=== PATIENT | male | born 1940 | race Caucasian/White ===

== ENCOUNTER 2024-09-05 19:51 | Inpatient (IN) | payer MEDICARE, OTHER, SELFPAY ==
[2024-09-05] VITALS (7 sets, daily range): BP systolic 123–138; BP diastolic 49–87; BMI 21.8; BMI 23.5
[2024-09-05 13:09] LABS: % Basophils 0.2 % (0-2); % Eosinophils 0.2 % (0-6); % Immature Granulocytes 0.5 % (0-0.5); % Lymphocytes 15.5 % (20.5-51.1); % Monocytes 8.5 % (1.7-9.3); % Neutrophils 75.1 % (42.2-75.2); Absolute Immature Granulocytes 0.1 10^3/uL (0-0.05); Absolute Monocytes 1.1 10^3/uL (0.1-0.6); Absolute Neutrophils 9.7 10^3/uL (1.4-6.5); Hematocrit 34.8 % (39.0-52.0); Hemoglobin 11.1 g/dL (13.0-18.0); Mean Corp Hgb Conc. 31.9 g/dL (33.0-37.0); Mean Corpuscular Hgb 25.9 pg (27.0-31.0); Mean Corpuscular Volume 81.3 fL (80.0-94.0); Mean Platelet Volume 10.4 fL (7.4-10.4); Nucleated Red Blood Cells % 0 % (-); Platelet Count 339 10^3/uL (130-400); Red Blood Cell Count 4.28 10^6/uL (4.70-6.10); Red Cell Dist. Width 16.6 % (11.5-14.5); White Blood Cell Count 12.9 10^3/uL (4.8-10.8)
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
[2024-09-05 13:19] LABS: ALT (SGPT) 16 U/L (0-50); AST (SGOT) 34 U/L (17-59); Albumin 3.9 g/dl (3.5-5.0); Alkaline Phosphatase 168 U/L (38-126); Blood Urea Nitrogen 33 mg/dl (9-20); Calcium 9.4 mg/dl (8.4-10.2); Carbon Dioxide 21 mmol/L (22-30); Chloride 104 mmol/L (98-107); Estimated Creatinine Clearance 47 ml/min; Glucose 124 mg/dl (70-99); Lactic Acid 2.8 mmol/L (0.7-2.0); Lipase 40 U/L (23-300); Sodium 142 mmol/L (135-145); Total Bilirubin 1.2 mg/dl (0.2-1.3); Total Protein 6.7 g/dl (6.3-8.2); eGFR > 60.00
[2024-09-05] MEDS: NSS 1000 IV ×2 (14:09→23:56)
[2024-09-05] MEDS: ZOFRAN 4 MG IV (14:09)
[2024-09-05] MEDS: OMNIPAQUE 50 ML PO (14:10)
--- NOTE | 2024-09-05 18:12 | W.PN.UPDATE ---
Update Note
Progress Note Update
I saw and examined the patient.
The DIRECTOR [employer] MARKETING [place] note was reviewed and I agree with the note.
Comment: 83 y/o M hx of HTN, HLD, COPD, ex-smoker, GERD, BPH, osteoarthritis presents to ER with vomiting, abd pain and inability to take in oral intake for the past x 1 week. Also reports difficulty with constipation over several months. Patient
was brought in by EMS after son called and heard of symptoms (Son was visiting).
in ER, CT imaging showed: 5 cm in length distal sigmoid mass high-level suspicion for adenocarcinoma and associated with multiple surrounding subcentimeter lymph nodes, Distention of the colon proximal to the sigmoid mass suggesting an element of
partial obstruction and hepatic mets.
Patient was admitted with colorectal consultation.
Physical Exam
General: Conversant; No Fever or Chills
HEENT: NormoCephalic, Anicteric, Moist mucous membranes, PERRLA and No Ptosis
Respiratory: Clear; No Wheezes, Rales or Rhonchi
Cardiac: S1/S2 and Regular Rhythm; No Murmur, Rub, Gallop or Peripheral Edema
Breast: Deferred by me
GI: Non Tender, Normal Bowel Sounds, Distended and No Hepatosplenomegaly
Rectal: Deferred by Provider
Genito-urinary: Deferred by me
Musculoskeletal: No Clubbing, No Cyanosis and No Edema
Skin: Warm and Dry; No Rash
Neuro: AO x 3 (Patient reports to me he has some memory impairment he tends to jump from topic to topic during our discussion), No Motor Deficits and No Sensory Deficits; No Slurred Speech, Facial Droop, Tremors or Sedated
Psych: Calm (To anxious versus agitated during our discussion)
Assessment:
Partial SBO
- CT: 5 cm in length distal sigmoid mass high-level suspicion for adenocarcinoma and associated with multiple surrounding subcentimeter lymph nodes, Distention of the colon proximal to the sigmoid mass suggesting an element of partial obstruction
and hepatic mets.
- above findings are new
- place NGT in ER, high risk of aspiration
- NPO and IVF
- pain control and anti-emetics
- Colorectal surgery consulted
- Oncology consulted
Lactic acidosis in setting of bowel obstruction
- continue IVF, repeat lactate level
Essential HTN
- not on meds, monitor for prn needs
COPD
ex-smoker
- prn nebs
GERD
- continue PPI as IV BID
BPH
- hold Avodart/Flomax
- bladder scans prn
Hx of neuropathy
osteoarthritis
Hx of Gout
- hold Gabapentin/Allopurinol
Anxiety
- prn Valium
HLD - not on meds
DVT ppx: SC heparin
Code: Full
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
--- NOTE | 2024-09-05 20:50 | TRANSFER ---
Pt admitted to unit with NG tube in left nare and taped at the 66 line. Pt ambulated with nursing staff to bed. Pt reported tenderness to palpation of abdomen. Pt denied nausea. NG tube connected to suction. AAXO2. Pt oriented to room with call rodriguez
in reach. Plan of care ongoing.
[2024-09-05 21:10] LABS: Lactic Acid 1.6 mmol/L (0.7-2.0)
[2024-09-05 21:13] LABS: Blood Urea Nitrogen 29 mg/dl (9-20); Carbon Dioxide 23 mmol/L (22-30); Chloride 103 mmol/L (98-107); Estimated Creatinine Clearance 56 ml/min; Glucose 103 mg/dl (70-99); Sodium 141 mmol/L (135-145); eGFR > 60.00
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
[2024-09-05] MEDS: HEPARIN 5000 UNITS SC (23:57)
[2024-09-06 07:00] VITALS: BP 143/83
[2024-09-06 07:38] LABS: % Basophils 0.3 % (0-2); % Eosinophils 0.5 % (0-6); % Immature Granulocytes 0.5 % (0-0.5); % Lymphocytes 15.5 % (20.5-51.1); % Monocytes 8.9 % (1.7-9.3); % Neutrophils 74.3 % (42.2-75.2); Absolute Eosinophils 0.1 10^3/uL (0-0.7); Absolute Immature Granulocytes 0.1 10^3/uL (0-0.05); Absolute Lymphocytes 1.5 10^3/uL (1.2-3.4); Absolute Monocytes 0.8 10^3/uL (0.1-0.6); Hematocrit 29.8 % (39.0-52.0); Hemoglobin 9.2 g/dL (13.0-18.0); Mean Corp Hgb Conc. 30.9 g/dL (33.0-37.0); Mean Corpuscular Hgb 24.6 pg (27.0-31.0); Mean Corpuscular Volume 79.7 fL (80.0-94.0); Mean Platelet Volume 11.5 fL (7.4-10.4); Nucleated Red Blood Cells % 0 % (-); Platelet Count 304 10^3/uL (130-400); Red Blood Cell Count 3.74 10^6/uL (4.70-6.10); Red Cell Dist. Width 16.8 % (11.5-14.5); White Blood Cell Count 9.5 10^3/uL (4.8-10.8)
[2024-09-06 07:43] LABS: INR 1.23; PT 15.3 Sec (11.4-14.6)
[2024-09-06 07:57] LABS: ALT (SGPT) 14 U/L (0-50); AST (SGOT) 27 U/L (17-59); Albumin 3.2 g/dl (3.5-5.0); Alkaline Phosphatase 149 U/L (38-126); Blood Urea Nitrogen 23 mg/dl (9-20); Calcium 8.7 mg/dl (8.4-10.2); Carbon Dioxide 24 mmol/L (22-30); Chloride 107 mmol/L (98-107); Estimated Creatinine Clearance 55 ml/min; Glucose 93 mg/dl (70-99); Potassium 3.6 mmol/L (3.5-5.1); Sodium 142 mmol/L (135-145); Total Bilirubin 0.8 mg/dl (0.2-1.3); Total Protein 5.9 g/dl (6.3-8.2); eGFR > 60.00
[2024-09-06] MEDS: HEPARIN 5000 UNITS SC ×2 (08:02→20:49)
[2024-09-06 08:25] LABS: Total Iron Binding Capacity 202 ug/dl (261-462)
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
[2024-09-06 08:57] LABS: Iron < 20 ug/dl (49-181)
[2024-09-06] MEDS: NSS 1000 IV ×2 (09:37→23:17)
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
[2024-09-06 10:00] VITALS: BP 132/74; PULSE 85; O2SAT 97
--- NOTE | 2024-09-06 11:02 | W.PN.CRS1 ---
Today's Communication / Plan
-
surgery vs hospice - patient still deciding
continue ngt
Assessment/Plan
-
complete large bowel obstruction from a proximal rectal mass associated with hepatic lesions concerning for hepatic metastases
-Continue NPO with NGT
-Patient still deciding if he wants surgery. He states he might want more time to think about it today. We did mention hospice care, which he is also considering.
-Given his uncertainty, we will have wound care berhane him for a stoma, should he decide to proceed.
-Will follow up with the patient early afternoon
Subjective Data
Subjective Data
Date of Service: September 06, 2024
Patient states he is considering whether or not he wants surgery. He is still undecided. He may want to wait until tomorrow.
Objective Data
-
Vital Signs
Temp Pulse Resp BP Pulse Ox
98.3 F 87 18 143/83 98
09/06/24 07:00 09/06/24 07:00 09/06/24 07:00 09/06/24 07:00 09/06/24 07:00
Intake & Output
09/05/24 09/06/24 09/07/24
06:59 06:59 06:59
Intake Total 615 / 615
Output Total 200 / 200
Balance 415 / 415
Intake:
IV fluids (Total) 615 / 615
Output:
Urine, Voided 200 / 200
Lab Results
09/06/24 07:06
09/06/24 07:06
Physical Exam
-
General: No Acute Distress and AOx3
Abdomen: Soft, Distended (slight) and Tender (diffusely tender)
Skin: Warm and Dry
[2024-09-06] MEDS: DILAUDID 1 MG IV ×2 (11:04→17:04)
[2024-09-06 11:22] LABS: CEA 409 ng/ml
[2024-09-06 11:26] LABS: Ferritin 56.9 ng/ml (17.9-464.0)
--- NOTE | 2024-09-06 12:06 | W.PN.UPDATE ---
Update Note
Progress Note Update
I spoke with the patient over the phone. This morning the patient was favoring waiting on surgery until least tomorrow after his friend arrived from [place]. I called him again to confirm this. The patient states that he does not want surgery
today. He may opt for surgery tomorrow but he wants to wait for his friend who is apparently getting on the plane from [place] now. The patient understands that his condition will worsen by waiting. I communicated the above with Dr. Cannon.
--- NOTE | 2024-09-06 12:41 | W.PN.HOSP.TC ---
Today's Communication/Plan
-
await possible surgery (tomorrow) vs hospice, patient remains in decision making process
continue NGT
Assessment / Plan
Assessment / Plan
Assessment:
near total SBO
- CT: 5 cm in length distal sigmoid mass high-level suspicion for adenocarcinoma and associated with multiple surrounding subcentimeter lymph nodes, Distention of the colon proximal to the sigmoid mass suggesting an element of partial obstruction
and hepatic mets.
- above findings are new
- this diagnosis is a threat to bodily function and life if progresses in short term
- s/p NGT placement in ER, continue LIWS
- NPO and IVF
- pain control and anti-emetics
- Colorectal surgery consulted; offered palliative diverting colostomy surgery. Patient still deciding; awaiting friends arrival to discuss
- Oncology consulted
- patient also considering hospice for underlying concern of metastatic cancer
Lactic acidosis in setting of bowel obstruction
- continue IVF, lactate normalized
Essential HTN
- not on meds, monitor for prn needs
COPD
ex-smoker
- prn nebs
GERD
- continue PPI as IV BID
BPH
- hold Avodart/Flomax
- bladder scans prn
Hx of neuropathy
osteoarthritis
Hx of Gout
- hold Gabapentin/Allopurinol
Anxiety
- prn Valium
HLD - not on meds
Anemia
- hematology following
- IV iron ordered as ferritin <100
DVT ppx: SC heparin
Code: Full
Anticipated Discharge: > 48 hours
Subjective/Interval History
-
Date of Service: September 06, [address]
patient remains deciding between Surgery vs hospice
Objective Data
-
Labs:
Laboratory Results
09/06/24
07:06
WBC 9.5
Hgb 9.2 L
Hct 29.8 L
Plt Count 304
PT 15.3 H
INR 1.23
APTT 37.0 H
Sodium 142
Potassium 3.6
Chloride 107
Carbon Dioxide 24
BUN 23 H
Creatinine 1.0
Glucose 93
Calcium 8.7
Total Bilirubin 0.8
AST 27
ALT 14
Alkaline Phosphatase 149 H
Vital Signs:
Vital Signs
Temp Pulse Resp BP Pulse Ox
98.3 F 87 18 143/83 98
09/06/24 07:00 09/06/24 07:00 09/06/24 07:00 09/06/24 07:00 09/06/24 07:00
I&O
09/05/24 09/06/24 09/07/24
06:59 06:59 06:59
Intake Total 615 / 615
Output Total 200 / 200
Balance 415 / 415
Physical Exam
-
General: No Apparent Distress
HEENT: Normocephalic, Atraumatic and Other (+NGT)
Respiratory: Negative Wheezes
Cardiac: Regular Rhythm and S1/S2
GI: Tender and Distended
Genito-urinary: No Costovertebral Tender
Neuro: AO x 3
Hematologic / Lymphatic: No Lymphadenopathy
Psych: Calm
Data Reviewed
-
Total Time Spent with Patient (in minutes): 41
Labs: Labs Reviewed by me
[2024-09-06] MEDS: FERRLECIT 110 MG IV (13:34)
--- NOTE | 2024-09-06 13:55 | CM ---
Patient lives in an apartment on 5th floor at [facility], patient is independent with adl's and ambulation, no dme, patient's friend drives him to buy groceries. Patient needs to make a decision on surgery and patient states his friend from
[place] is to arrive soon to help him make a decision.
PCP: Dr. Dyer
Pharmacy: [facility].
Plan; To follow with patient progress for discharge planning for patient.
[2024-09-06 15:00] VITALS: BP 128/74; BMI 23.5
[2024-09-07] VITALS (7 sets, daily range): BP systolic 109–155; BP diastolic 62–82
--- NOTE | 2024-09-07 01:35 | TRANSFER ---
Call 2 [facility] gave report to PROSPER Felix. Pt transferred in bed with belongings. Plan of care ongoing.
--- NOTE | 2024-09-07 04:33 | PTCARENOTE ---
Pt arrived via bed to 2S. Pt AAOX3 but confused. NGT in L nare to LIWS. IVF infusing per order. head to toe assessment complete. bed alarm in place. Pt oriented to room and call rodriguez.
--- NOTE | 2024-09-07 05:40 | PTCARENOTE ---
Addendum entered by Elvira Angel RN 09/07/24 07:04:
Pt stating continuously he is not going for surgery
Original Note:
Pt refused first set CHG wipes and linen change. 'pt states he is going on hospice' and 'waiting for his friend to come'.
[2024-09-07 06:23] LABS: % Basophils 0.3 % (0-2); % Eosinophils 0.2 % (0-6); % Immature Granulocytes 0.5 % (0-0.5); % Lymphocytes 18.3 % (20.5-51.1); % Neutrophils 71.7 % (42.2-75.2); Absolute Lymphocytes 1.6 10^3/uL (1.2-3.4); Absolute Monocytes 0.8 10^3/uL (0.1-0.6); Absolute Neutrophils 6.3 10^3/uL (1.4-6.5); Hematocrit 30.5 % (39.0-52.0); Hemoglobin 9.5 g/dL (13.0-18.0); Mean Corp Hgb Conc. 31.1 g/dL (33.0-37.0); Mean Corpuscular Volume 80.3 fL (80.0-94.0); Mean Platelet Volume 10.8 fL (7.4-10.4); Nucleated Red Blood Cells % 0 % (-); Platelet Count 298 10^3/uL (130-400); White Blood Cell Count 8.8 10^3/uL (4.8-10.8)
[2024-09-07 06:55] LABS: ALT (SGPT) 15 U/L (0-50); AST (SGOT) 28 U/L (17-59); Albumin 3.1 g/dl (3.5-5.0); Alkaline Phosphatase 139 U/L (38-126); Blood Urea Nitrogen 21 mg/dl (9-20); Calcium 8.8 mg/dl (8.4-10.2); Carbon Dioxide 20 mmol/L (22-30); Chloride 112 mmol/L (98-107); Estimated Creatinine Clearance 61 ml/min; Glucose 90 mg/dl (70-99); Potassium 3.8 mmol/L (3.5-5.1); Sodium 146 mmol/L (135-145); Total Bilirubin 0.7 mg/dl (0.2-1.3); Total Protein 5.6 g/dl (6.3-8.2); eGFR > 60.00
[2024-09-07] MEDS: NSS 1000 IV ×2 (07:50→22:16)
[2024-09-07] MEDS: HEPARIN 5000 UNITS SC ×2 (09:11→20:11)
--- NOTE | 2024-09-07 09:11 | CM ---
Received CM consult for hospice. Reviewed the chart notes. Referral sent via [facility] for Hospice. Per note, patient is waiting on his friend from [place] to decide on hospice or surgery. CM continues to be available to patient/family and
is monitoring medical plan for needs at discharge.
Plan: Discharge plans will depend on the patient's progress.
--- NOTE | 2024-09-07 09:16 | HOSPNOTE ---
Addendum entered by Divya Castillo RN 09/07/24 11:51:
Spoke with patient and gave information to him in regards to hospice and the philosophy his godson was present for the conversation. I left my name and contact information and the patient would like me to come back tomorrow and he will most likely
have an answer. Will follow up.
Original Note:
Referral received and will speak with patient and give information about hospice and the philosophy. I understand we are awaiting the arrival of patient's friend to make final decisions.
--- NOTE | 2024-09-07 09:42 | W.PN.CRS1 ---
Addendum entered and electronically signed by Stone Cannon MD 09/07/24 16:48:
Colorectal will sign off as patient elected hospice. Please call for any questions/concerns.
Original Note:
Today's Communication / Plan
-
continue ngt
holding on surgery
hospice c/s
Assessment/Plan
-
complete large bowel obstruction from a proximal rectal mass associated with hepatic lesions concerning for hepatic metastases
-Continue NPO with NGT
-Patient asking for a hospice consult. I notified hospitalist.
-Patient states he does not want surgery today but will consider things.
-Will follow.
Subjective Data
Subjective Data
Date of Service: September 07, 2024
Patient states he feels the same. He does not have any gas or bowel movements. He feels bloated. He has no nausea. He states that he does not want surgery today and would like to talk to hospice.
Objective Data
-
Vital Signs
Temp Pulse Resp BP Pulse Ox
97.5 F 83 17 152/72 96
09/07/24 07:40 09/07/24 07:40 09/07/24 07:40 09/07/24 07:40 09/07/24 07:40
Intake & Output
09/06/24 09/07/24 09/08/24
06:59 06:59 06:59
Intake Total 615 / 615 750 / 750
Output Total 200 / 200 375 / 375 25 25
Balance 415 / 415 375 / 375 -25 / -25
Intake:
IV fluids (Total) 615 / 615 650 / 650
IV piggybacks 100 / 100
Output:
Gastrointestinal tube output (
Total)
Marx
Urine, Voided 200 / 200 375 / 375
Lab Results
09/07/24 05:47
09/07/24 05:47
Physical Exam
-
General: No Acute Distress and AOx3
Abdomen: Distended and Non Tender
Skin: Warm and Dry
--- NOTE | 2024-09-07 12:18 | PTCARENOTE ---
Pt showered with tshirt on, pt refusing to remove soaked tshirt post shower.
[2024-09-07] MEDS: FERRLECIT 110 MG IV (13:40)
--- NOTE | 2024-09-07 13:57 | HOSPNOTE ---
Got a phone call from patient and friend, patient has decided to have the NG tube removed and be placed on comfort. The patient is fearful of being in pain I assured patient we will manage pain. Attending aware and will speak with patient.
--- NOTE | 2024-09-07 14:04 | W.PN.HOSP.TC ---
Today's Communication/Plan
-
2N transfer
remove NGT if ok with patient
possible comfort vs GIP level hospice in 24 hours
Assessment / Plan
Assessment / Plan
Assessment:
near total SBO
- CT: 5 cm in length distal sigmoid mass high-level suspicion for adenocarcinoma and associated with multiple surrounding subcentimeter lymph nodes, Distention of the colon proximal to the sigmoid mass suggesting an element of partial obstruction
and hepatic mets.
- above findings are new
- this diagnosis is a threat to bodily function and life if progresses in short term
- s/p NGT placement in ER, continue LIWS until decision for hospice/comfort finalized
- NPO and IVF
- pain control and anti-emetics
- Colorectal surgery consulted; offered palliative diverting colostomy surgery. Patient has declined and wants hospice
- Oncology consulted
Lactic acidosis in setting of bowel obstruction
- continue IVF, lactate normalized
Essential HTN
- not on meds, monitor for prn needs
COPD
ex-smoker
- prn nebs
GERD
- continue PPI as IV BID
BPH
- hold Avodart/Flomax
- bladder scans prn
Hx of neuropathy
osteoarthritis
Hx of Gout
- hold Gabapentin/Allopurinol
Anxiety
- prn Valium
HLD - not on meds
Anemia
- hematology following
- IV iron ordered as ferritin <100
DVT ppx: SC heparin
Code: DNR as patient pursuing hospice, confirmed with patient.
GOC discussion: patient wants to pursue hospice. Understands short and rat exterminator prognosis without acute or rat exterminator interventions is very poor. Agrees to have NG removed if ok with hospice service, and will give symptomatic control, possible
comfort vs GIP level hospice in 24 hours. CM/Hospice aware. >30 mins discussion
Anticipated Discharge: > 48 hours
Subjective/Interval History
-
Date of Service: September 07, 2024
refusing surgery and wants to be comfortable, pursue hospice
Objective Data
-
Labs:
Laboratory Results
09/07/24
05:47
WBC 8.8
Hgb 9.5 L
Hct 30.5 L
Plt Count 298
Sodium 146 H
Potassium 3.8
Chloride 112 H
Carbon Dioxide 20 L
BUN 21 H
Creatinine 0.9
Glucose 90
Calcium 8.8
Total Bilirubin 0.7
AST 28
ALT 15
Alkaline Phosphatase 139 H
Vital Signs:
Vital Signs
Temp Pulse Resp BP Pulse Ox
97.5 F 83 17 152/72 96
09/07/24 07:40 09/07/24 07:40 09/07/24 07:40 09/07/24 07:40 09/07/24 07:40
I&O
09/06/24 09/07/24 09/08/24
06:59 06:59 06:59
Intake Total 615 / 615 750 / 750
Output Total 200 / 200 375 / 375 25 / 25
Balance 415 / 415 375 / 375 -25 / -25
Physical Exam
-
General: Appears in Distress and Pain
HEENT: Normocephalic; Negative Atraumatic
Respiratory: Clear to Auscultation; Negative Wheezes
Cardiac: Regular Rhythm and S1/S2
GI: Tender and Distended
Genito-urinary: No Costovertebral Tender
Neuro: AO x 3
Psych: Calm
Data Reviewed
-
Total Time Spent with Patient (in minutes): 51
Labs: Labs Reviewed by me
[2024-09-07] MEDS: DILAUDID 1 MG IV (17:34)
--- NOTE | 2024-09-07 17:34 | PTCARENOTE ---
Pt to be transferred to , report called to Violet CHENG.
--- NOTE | 2024-09-07 18:30 | PTCARENOTE ---
Patient transferred from to . Pt c/o of abdomen pain. Medicated with pain med as ordered. No s/s of distress noted. Vs documented. call rodriguez within reach. God son at bedside. Plan of care ongoing.
[2024-09-07] MEDS: DILAUDID 0.5 MG IV (18:31)
[2024-09-07] MEDS: NSS IV (18:31)
[2024-09-07] MEDS: MORPHINE SULFATE 2 MG IV (20:18)
[2024-09-08] MEDS: MORPHINE SULFATE 2 MG IV ×4 (01:19→08:50)
[2024-09-08 07:29] VITALS: BP 135/74
[2024-09-08 07:37] LABS: % Basophils 0.3 % (0-2); % Eosinophils 0.5 % (0-6); % Immature Granulocytes 0.5 % (0-0.5); % Lymphocytes 12.9 % (20.5-51.1); % Monocytes 7.1 % (1.7-9.3); % Neutrophils 78.7 % (42.2-75.2); Absolute Eosinophils 0.1 10^3/uL (0-0.7); Absolute Immature Granulocytes 0.1 10^3/uL (0-0.05); Absolute Lymphocytes 1.4 10^3/uL (1.2-3.4); Absolute Monocytes 0.8 10^3/uL (0.1-0.6); Absolute Neutrophils 8.4 10^3/uL (1.4-6.5); Hemoglobin 10.2 g/dL (13.0-18.0); Mean Corp Hgb Conc. 31.9 g/dL (33.0-37.0); Mean Corpuscular Hgb 25.9 pg (27.0-31.0); Mean Corpuscular Volume 81.2 fL (80.0-94.0); Mean Platelet Volume 11.2 fL (7.4-10.4); Nucleated Red Blood Cells % 0 % (-); Platelet Count 285 10^3/uL (130-400); Red Blood Cell Count 3.94 10^6/uL (4.70-6.10); White Blood Cell Count 10.7 10^3/uL (4.8-10.8)
[2024-09-08 08:11] LABS: ALT (SGPT) 15 U/L (0-50); AST (SGOT) 30 U/L (17-59); Albumin 3.2 g/dl (3.5-5.0); Alkaline Phosphatase 151 U/L (38-126); Blood Urea Nitrogen 19 mg/dl (9-20); Carbon Dioxide 18 mmol/L (22-30); Chloride 112 mmol/L (98-107); Estimated Creatinine Clearance 61 ml/min; Glucose 79 mg/dl (70-99); Potassium 3.9 mmol/L (3.5-5.1); Sodium 146 mmol/L (135-145); Total Bilirubin 0.8 mg/dl (0.2-1.3); Total Protein 5.8 g/dl (6.3-8.2); eGFR > 60.00
[2024-09-08] MEDS: NSS 1000 IV (08:39)
[2024-09-08] MEDS: HEPARIN 5000 UNITS SC (08:40)
--- NOTE | 2024-09-08 09:34 | W.PN.ONC ---
Today's Communication / Plan
-
Patient is given consideration and elected not to pursue diagnostic biopsy
Hospice appropriate to maintain comfort
Will sign off
Impression
Impression
Bowel obstruction secondary to sigmoid colon mass, liver metastases
Microcytic anemia, likely iron deficiency
Subjective/Objective
Subjective/Objective
Patient denies complaints of abdominal pain or nausea.
Vital Signs:
Vital Signs
Temp Pulse Resp BP Pulse Ox
97.9 F 90 14 135/74 97
09/08/24 07:29 09/08/24 07:29 09/08/24 07:29 09/08/24 07:29 09/08/24 07:29
physical exam is unchanged
Lab Results:
Laboratory Data
WBC 10.7 10^3/uL (4.8-10.8) 09/08/24 06:11
Hgb 10.2 g/dL (13.0-18.0) L 09/08/24 06:11
Plt Count 285 10^3/uL (130-400) 09/08/24 06:11
PT 15.3 Sec (11.4-14.6) H 09/06/24 07:06
INR 1.23 09/06/24 07:06
APTT 37.0 Sec (23.4-35.0) H 09/06/24 07:06
eGFR > 60.00 09/08/24 06:11
--- NOTE | 2024-09-08 11:01 | HOSPNOTE ---
Spoke with patient at length, the patient got all his financial paperwork in order and the nephew Ibeth is aware. I will give the cremation information and phone numbers to nephew. The patient is in a considerable amount of pain and was medicated
with morphine. I called admissions and stated patient would be inpatient hospice today consents are signed. town clerk aware and floor RN.
--- NOTE | 2024-09-08 12:37 | W.PN.HOSP.TC ---
Today's Communication/Plan
-
DC GIP hospice
Assessment / Plan
Assessment / Plan
Assessment:
near total SBO
- CT: 5 cm in length distal sigmoid mass high-level suspicion for adenocarcinoma and associated with multiple surrounding subcentimeter lymph nodes, Distention of the colon proximal to the sigmoid mass suggesting an element of partial obstruction
and hepatic mets.
- above findings are new
- this diagnosis is a threat to bodily function and life if progresses in short term
- s/p NGT placement in ER, continue LIWS until decision for hospice/comfort finalized
- NPO and IVF
- pain control and anti-emetics
- Colorectal surgery consulted; offered palliative diverting colostomy surgery. Patient has declined and wants hospice
- Oncology consulted
Lactic acidosis in setting of bowel obstruction
- continue IVF, lactate normalized
Essential HTN
- not on meds, monitor for prn needs
COPD
ex-smoker
- prn nebs
GERD
- continue PPI as IV BID
BPH
- hold Avodart/Flomax
- bladder scans prn
Hx of neuropathy
osteoarthritis
Hx of Gout
- hold Gabapentin/Allopurinol
Anxiety
- prn Valium
HLD - not on meds
Anemia
- hematology following
- IV iron ordered as ferritin <100
DVT ppx: SC heparin
Code: DNR as patient pursuing hospice, confirmed with patient.
[facility] discussion: IP Hospice admission today
Anticipated Discharge: Today
Subjective/Interval History
-
Date of Service: September 08, 2024
pain from abdomen
for GIP hospice switch
Objective Data
-
Labs:
Laboratory Results
09/08/24
06:11
WBC 10.7
Hgb 10.2 L
Hct 32.0 L
Plt Count 285
Sodium 146 H
Potassium 3.9
Chloride 112 H
Carbon Dioxide 18 L
BUN 19
Creatinine 0.9
Glucose 79
Calcium 9.0
Total Bilirubin 0.8
AST 30
ALT 15
Alkaline Phosphatase 151 H
Vital Signs:
Vital Signs
Temp Pulse Resp BP Pulse Ox
97.9 F 90 14 135/74 97
09/08/24 07:29 09/08/24 07:29 09/08/24 07:29 09/08/24 07:29 09/08/24 07:29
I&O
09/07/24 09/08/24 09/09/24
06:59 06:59 06:59
Intake Total 750 / 750 1430 / 1430
Output Total 375 / 375 145 / 145
Balance 375 / 375 1285 / 1285
Physical Exam
-
General: No Apparent Distress
HEENT: Normocephalic and Atraumatic
Respiratory: Negative Wheezes
Cardiac: Regular Rhythm and S1/S2
GI: Soft
Genito-urinary: No Costovertebral Tender
Musculoskeletal: No Edema
Neuro: AO x 3
Psych: Calm
Data Reviewed
-
Total Time Spent with Patient (in minutes): 41
Labs: Labs Reviewed by me
--- NOTE | 2024-09-08 12:38 | W.DS.TRANS ---
DC Summary - Learning Services Coordinator
-
Discharge Instructions:
Instructions:
Stand-Alone Forms:
Changes to Home Medications: Yes
Discharge Medications:
DC Medications w/original date entered in [facility]
dutasteride 0.5 mg capsule (Avodart) 0.5 mg PO NOON 12/13/15
pantoprazole 40 mg tablet,delayed release 40 mg PO BID 12/13/15
tamsulosin 0.4 mg capsule 0.4 mg PO NOON 12/13/15
allopurinol 300 mg tablet 300 mg PO NOON 09/05/24
diazepam 5 mg tablet 5 mg PO DAILYPRN PRN anxiety 09/05/24
gabapentin 800 mg tablet 800 mg PO NOON 09/05/24
sennosides 8.6 mg tablet (senna) 17.2 mg PO BIDPRN PRN constipation 09/05/24
Home Medication Changes
all stopped for hospice care
Pending Results: No
Total time spent discharging patient (in min): 41
--- NOTE | 2024-09-08 12:58 | CM ---
Patient signed on to hospice services.
Dx: Partial SBO, liver mets
elected not to pursue diagnostic biopsy
== END 2024-09-08 12:49 | disposition home or self-care (01) | DRG 375 ==
LOC: 2 NORTH 19:51
PROVIDERS: Clinical Nurse Specialist Family Health; Emergency Medicine; ADMITTING PHYSICIAN Internal Medicine; CONSULT PHYSICIAN Surgery; EMERGENCY PHYSICIAN Emergency Medicine; FAMILY PHYSICIAN Family Medicine; OTHER PHYSICIAN Internal Medicine Hematology & Oncology
DX: C18.7 Malignant neoplasm of sigmoid colon (principal); C78.7 Secondary malignant neoplasm of liver and intrahepatic bile duct; E87.20 Acidosis, unspecified; K56.600 Partial intestinal obstruction, unspecified as to cause; N18.9 Chronic kidney disease, unspecified; I12.9 Hypertensive chronic kidney disease with stage 1 through stage 4 chronic kidney disease, or unspecified chronic kidney disease; J44.9 Chronic obstructive pulmonary disease, unspecified; K21.9 Gastro-esophageal reflux disease without esophagitis; N40.0 Benign prostatic hyperplasia without lower urinary tract symptoms; F41.9 Anxiety disorder, unspecified; D50.9 Iron deficiency anemia, unspecified; Z87.891 Personal history of nicotine dependence
CPT/HCPCS: 71046; 74177; 80048; 80053; 82378; 82728; 83540; 83550; 83605; 83690; 85025; 85610; 85730; 86850; 86900; 86901; 93005; 96374; 97162; 97167; 99285; J2916; Q9967

== ENCOUNTER 2024-09-08 12:52 | Inpatient (IN) | payer OTHER, SELFPAY ==
--- NOTE | 2024-09-08 12:40 | ADM.HSP ---
Admission - Hospice
History of Present Illness
83 y/o M with abd pain, near total SBO and concern for metastatic adenocarcinoma admitted with [facility] hospice for intractable, terminal pain and symptoms of vomiting
Assessment:
near total SBO
distal sigmoid mass high-level suspicion for adenocarcinoma and associated with multiple surrounding subcentimeter lymph nodes, Distention of the colon proximal to the sigmoid mass suggesting an element of partial obstruction and hepatic mets.
Lactic acidosis in setting of bowel obstruction
Essential HTN
COPD
ex-smoker
GERD
BPH
Hx of neuropathy
osteoarthritis
Hx of Gout
Anxiety
HLD
Anemia
Reason for Hospice Admission
acute abdominal pain, bowel obstruction
Review of Systems
Unable to obtain full review of systems at this time due to: Acuity
Physical Exam
General: Appears in Distress and Pain
Respiratory: Clear to Auscultation and Wheezes
Cardiology: Regular Rhythm and S1/S2
GI: Tender and Distended
Musculoskeletal: No Edema
Neuro: Awake
Psych: Calm
[2024-09-08 12:43] VITALS: BP 134/82
[2024-09-08] MEDS: NSS (PRESERVATIVE FREE) 0.5 ML IV (13:53)
[2024-09-08] MEDS: ATIVAN 1 MG IV (13:53)
[2024-09-08] MEDS: NSS (PRESERVATIVE FREE) 10 ML IV (13:54)
[2024-09-08] MEDS: PROTONIX IV 40 MG IV (13:54)
--- NOTE | 2024-09-08 14:37 | CHAP ---
Request relayed to [facility] for end of life visit. [facility] expected to arrive in the early afternoon. Will follow as able.
[2024-09-08] MEDS: MORPHINE SULFATE 2 MG IV ×5 (14:52→22:33)
[2024-09-08 22:04] VITALS: BP 121/69
[2024-09-08] MEDS: MORPHINE 100 IV (23:46)
[2024-09-09] MEDS: MORPHINE SULFATE 2 MG IV ×10 (05:18→18:18)
[2024-09-09 08:00] VITALS: BP 121/79
[2024-09-09] MEDS: PROTONIX IV 40 MG IV (08:59)
[2024-09-09] MEDS: NSS (PRESERVATIVE FREE) 10 ML IV (08:59)
--- NOTE | 2024-09-09 09:40 | HOSPNOTE ---
Patient was admitted onto hospice services 09/08/24. Patient will be seen daily by hospice nurse.
[2024-09-09] MEDS: NSS (PRESERVATIVE FREE) 0.5 ML IV ×2 (10:18→16:05)
[2024-09-09] MEDS: ATIVAN 1 MG IV ×2 (10:18→16:05)
[2024-09-09] MEDS: ROBINUL 0.2 MG IV ×3 (13:32→22:30)
--- NOTE | 2024-09-09 14:06 | W.PN.HOSP.TC ---
Today's Communication/Plan
-
maximize comfort
Assessment / Plan
Assessment / Plan
Assessment:
near total SBO
distal sigmoid mass high-level suspicion for adenocarcinoma and associated with multiple surrounding subcentimeter lymph nodes, Distention of the colon proximal to the sigmoid mass suggesting an element of partial obstruction and hepatic mets.
Lactic acidosis in setting of bowel obstruction
Essential HTN
COPD
ex-smoker
GERD
BPH
Hx of neuropathy
osteoarthritis
Hx of Gout
Anxiety
HLD
Anemia
Plan:
Inpatient hospice protocol with prn Morphine and Morphine drip. Rodriguez placed for comfort. d/w RN and hospice
Anticipated Discharge: Within 24 hours
Subjective/Interval History
-
Date of Service: September 09, 2024
on morphine drip, audible congestion
receiving prn doses of morphine as well
Rodriguez placed this AM for comfort
Objective Data
-
Vital Signs:
Vital Signs
Temp Pulse Resp BP Pulse Ox
97.7 F 105 20 121/79 97
09/09/24 08:00 09/09/24 08:00 09/09/24 08:00 09/09/24 08:00 09/09/24 09:55
I&O
09/08/24 09/09/24 09/10/24
06:59 06:59 06:59
Output Total 2 / 2
Balance -2 / -2
Physical Exam
-
General: Respiratory Distress; Negative Pain
HEENT: Normocephalic and Atraumatic
Respiratory: Accessory Resp Muscle Use and Decreased Breath Sounds (audible congestion)
Cardiac: Regular Rhythm and S1/S2
GI: Distended
Neuro: Sedated
Psych: Calm
--- NOTE | 2024-09-09 14:42 | HOSPNOTE ---
Patient appears much more comfortable with martin catheter placement. Patient is now a morphine drip and is given PRN doses when needed with care and repositioning. Patient will be seen daily by hospice nurse.
[2024-09-09 19:47] VITALS: BP 96/71
[2024-09-09] MEDS: TYLENOL/FEVERALL 650 MG RECTAL (20:28)
[2024-09-09] MEDS: MORPHINE SULFATE 4 MG IV (20:35)
--- NOTE | 2024-09-10 00:21 | W.PN.DEATH ---
Pronouncement of
-
Called to see patient to pronounce.
No spontaneous heart tones or respirations noted.
Patient not responsive to verbal stimuli.
Patient is pronounced .
Time of : 11:40
Date of : 09/09/24
Cause of : colon cancer
Family Notified: Yes
== END 2024-09-09 01:26 | disposition expired | DRG 951 ==
LOC: 2 NORTH 12:52
PROVIDERS: ADMITTING PHYSICIAN Internal Medicine
DX: Z51.5 Encounter for palliative care (principal); C18.9 Malignant neoplasm of colon, unspecified; E87.20 Acidosis, unspecified; K56.609 Unspecified intestinal obstruction, unspecified as to partial versus complete obstruction; I10 Essential (primary) hypertension; J44.9 Chronic obstructive pulmonary disease, unspecified; Z87.891 Personal history of nicotine dependence; K21.9 Gastro-esophageal reflux disease without esophagitis